=== PATIENT | male | born 1985 | race Caucasian/White ===

== ENCOUNTER 2017-01-20 00:09 | Emergency (ER) | payer OTHER ==
[2017-01-20 00:20] VITALS: BP 147/100; PULSE 103; RESP 18; TEMP 98.4; O2SAT 96
--- NOTE | 2017-01-20 00:22 | PD ---
HPI Chief Complaint: psychiatric evaluation Time Seen by Provider: 00:20 Travel History International Travel<30 days: No Contact w/Intl Traveler<30days: No History of Present Illness HPI Patient comes in with police escort under Sánchez act for allegedly holding a gun to his head and sending a photo of this to his mother. Patient states that he had a rough day, got into an argument with his family, and drank 4 beers. Patient denies any homicidal or suicidal ideations. Patient denies any history of self-harm or suicide attempts. Patient denies any medical concerns at this time. Denies any chest pain, shortness breath, fevers, nausea, vomiting, headache, or abdominal pain. PFSH Past Medical History Medical History: Denies Significant Hx Social History Alcohol Use: Yes Tobacco Use: Yes Substance Use: Yes (marijuana) Allergies-Medications (Allergen,Severity, Reaction): Coded Allergies: No Known Allergies (Unverified , 01/20/17) Reported Meds & Prescriptions Reported Meds & Active Scripts Active No Active Prescriptions or Reported Medications Review of Systems Except as stated in HPI: all other systems reviewed are Neg Physical Exam Narrative GENERAL: Well-developed, well nourished, in no acute distress, and non-ill appearing. SKIN: Focused skin assessment warm and dry. HEAD: Atraumatic. Normocephalic. EYES: Pupils equal and round. EOMI. No scleral icterus. No injection or drainage. ENT: No nasal bleeding or discharge. Mucous membranes pink and moist. NECK: Trachea midline. No JVD. Supple. No nuclear rigidity. CARDIOVASCULAR: Regular rate and rhythm. No murmur appreciated. RESPIRATORY: No accessory muscle use. No respiratory distress. Clear to auscultation. Breath sounds equal bilaterally. MUSCULOSKELETAL: No obvious deformities. No clubbing. No cyanosis. No edema. Full range of motion. NEUROLOGICAL: Awake and alert. No obvious cranial nerve deficits. Motor grossly within normal limits. Normal speech. PSYCHIATRIC: Appropriate mood and affect; insight and judgment normal. Data Data Last Documented VS Vital Signs Date Time Temp Pulse Resp B/P Pulse Ox O2 Delivery O2 Flow Rate FiO2 01/20/17 00:22 101 18 01/20/17 00:20 98.4 147/100 96 Orders Complete Blood Count With Diff (01/20/17 00:18) Comprehensive Metabolic Panel (01/20/17 00:18) Psych Screen (01/20/17 00:18) Drug Screen, Random Urine (01/20/17 00:18) Alcohol (Ethanol) (01/20/17 00:18) Salicylates (Aspirin) (01/20/17 00:18) Tylenol (Acetaminophen) (01/20/17 00:18) Labs Laboratory Tests Test 01/20/17 00:25 White Blood Count 19.6 TH/MM3 Red Blood Count 5.35 MIL/MM3 Hemoglobin 17.7 GM/DL Hematocrit 51.8 % Mean Corpuscular Volume 96.8 FL Mean Corpuscular Hemoglobin 33.0 PG Mean Corpuscular Hemoglobin 34.1 % Concent Red Cell Distribution Width 13.8 % Platelet Count 254 TH/MM3 Mean Platelet Volume 8.5 FL Neutrophils (%) (Auto) 81.7 % Lymphocytes (%) (Auto) 12.5 % Monocytes (%) (Auto) 5.2 % Eosinophils (%) (Auto) 0.3 % Basophils (%) (Auto) 0.3 % Neutrophils # (Auto) 16.0 TH/MM3 Lymphocytes # (Auto) 2.5 TH/MM3 Monocytes # (Auto) 1.0 TH/MM3 Eosinophils # (Auto) 0.1 TH/MM3 Basophils # (Auto) 0.1 TH/MM3 CBC Comment DIFF FINAL Differential Comment Sodium Level 141 MEQ/L Potassium Level 3.7 MEQ/L Chloride Level 106 MEQ/L Carbon Dioxide Level 22.6 MEQ/L Anion Gap 12 MEQ/L Blood Urea Nitrogen 7 MG/DL Creatinine 0.87 MG/DL Estimat Glomerular Filtration 104 ML/MIN Rate Random Glucose 81 MG/DL Calcium Level 9.0 MG/DL Total Bilirubin 0.6 MG/DL Aspartate Amino Transf 17 U/L (AST/SGOT) Alanine Aminotransferase 18 U/L (ALT/SGPT) Alkaline Phosphatase 73 U/L Total Protein 8.4 GM/DL Albumin 4.6 GM/DL Salicylates Level 4.3 MG/DL Urine Opiates Screen NEG Acetaminophen Level LESS THAN 2.0 MCG/ML Urine Barbiturates Screen NEG Urine Amphetamines Screen NEG Urine Benzodiazepines Screen NEG Urine Cocaine Screen NEG Urine Cannabinoids Screen POS Ethyl Alcohol Level 80 MG/DL MDM Medical Decision Making Medical Screen Exam Complete: Yes Emergency Medical Condition: Yes Differential Diagnosis Homicidal, suicidal, electrolyte abnormality, alcohol intoxication, other Narrative Course Patient was seen and examined. Labs were obtained and reviewed. I suspect the leukocytosis is stress-induced. Patient medically cleared for further treatment and evaluation by psych. Final disposition per psych. Diagnosis Primary Impression: Medical clearance for psychiatric admission Scripts No Active Prescriptions or Reported Meds Condition: Jerad Majano Jan 20, 2017 00:22
[2017-01-20 00:52] LABS: BASOPHIL # 0.1 TH/MM3 (0-0.2); BASOPHIL % 0.3 % (0.0-2.0); EOSINOPHIL # 0.1 TH/MM3 (0-0.4); EOSINOPHIL % 0.3 % (0.0-4.0); HEMATOCRIT 51.8 % (39.0-51.0); HEMO FLAGS DIFF FINAL; LYMPH % 12.5 % (9.0-44.0); LYMPHOCYTE # 2.5 TH/MM3 (1.0-4.8); MEAN CELL VOLUME 96.8 FL (80.0-100.0); MEAN CORPUSCULAR HGB CONC 34.1 % (32.0-36.0); MONO % 5.2 % (0.0-8.0); NEUT % 81.7 % (16.0-70.0); PLATELET COUNT 254 TH/MM3 (150-450); RED BLOOD COUNT 5.35 MIL/MM3 (4.50-5.90); RED CELL DISTRIBUTION WIDTH 13.8 % (11.6-17.2); WHITE BLOOD COUNT 19.6 TH/MM3 (4.0-11.0)
[2017-01-20 00:53] LABS: AMPHETAMINE, URINE NEG (NEG); BARBITURATES, URINE NEG (NEG); COCAINE, URINE NEG (NEG)
[2017-01-20 00:57] LABS: ALT (GPT) 18 U/L (12-78); ANION GAP 12 MEQ/L (5-15); AST (GOT) 17 U/L (15-37); BICARBONATE 22.6 MEQ/L (21.0-32.0); BLOOD UREA NITROGEN 7 MG/DL (7-18); CHLORIDE 106 MEQ/L (98-107); GLOMERULAR FILTRATION RATE 104 ML/MIN (>89); POTASSIUM 3.7 MEQ/L (3.5-5.1); SODIUM (NA) 141 MEQ/L (136-145)
[2017-01-20 00:58] LABS: ALKALINE PHOSPHATASE 73 U/L (45-117); TOTAL BILIRUBIN ADULT 0.6 MG/DL (0.2-1.0)
[2017-01-20 00:59] LABS: ACETAMINOPHEN LESS THAN 2.0 MCG/ML (10.0-30.0)
[2017-01-20 08:03] VITALS: BP 134/69; PULSE 55; RESP 14; O2SAT 100
--- NOTE | 2017-01-20 10:30 | PD.PSY.CON ---
Provisional Diagnosis Admission Date Half Way I. Alcohol induced mood disorder, alcohol and cannabis use disorder Half Way II. Deferred Half Way III. No significant medical history History of Present Illness Service Psychiatry Consult Requested By Primary Care Physician Unknown HPI The patient is a 31-year-old [place] man, single, employed, domiciled in [place], no psychiatric history, no previous suicidal attempts, no previous psychiatric admissions, no significant medical history, who comes in with police escort under S[place]chez act for allegedly holding a gun to his head and sending a photo of this to his mother. On psychiatric evaluation today patient is calm, cooperative and pleasant, he is clinically sober. Patient reports good mood, he says that he feels shamed and regrets his actions yesterday, he says that he was stressed and drunk. Patient states that he had a rough day, got into an argument with his family, and drank about 4 beers. He says that he also has been facing problem with his girlfriend. But he denies hopelessness, he denies helplessness, he denies worthlessness, he denies anhedonia, anxiety. Patient denies any homicidal or suicidal ideations. Patient is future oriented, he says that he has to go to his job today, has multiple identifiable protective factors for suicidality. He reports almost daily use of alcohol, denies previous withdrawal symptoms, denies detox/ rehabilitation. He also reports almost daily use of cannabis. Mother, Corin Castro, , use as a collateral information, reports that yesterday she became very scared when he sent her a picture of pain with a gun in his head. She was so scared that she decided to Sánchez act him. What, hours later she became aware that he was using a BB gun and he was drunk and he was most probably just manipulating. She doesn't think that he would benefit of a psychiatric admission. She clarifies that he doesn't have any psychiatric history, he has a good job, but he has been in a lot of stressed after breaking up with his girlfriend. She says that she will calm and pick him up was taking back home with her and will make sure that he is safe. Review of Systems Constitutional: DENIES: Diaphoretic episodes, Fatigue, Fever, Weight gain, Weight loss, Chills, Dizziness, Change in appetite, Night Sweats Endocrine: DENIES: Heat/cold intolerance, Polydipsia, Polyuria, Polyphagia Eyes: DENIES: Blurred vision, Diplopia, Eye inflammation, Eye pain, Vision loss , Photosensitivity, Double Vision Ears, nose, mouth, throat: DENIES: Tinnitus, Hearing loss, Vertigo, Nasal discharge, Oral lesions, Throat pain, Hoarseness, Ear Pain, Running Nose, Epistaxis, Sinus Pain, Toothache, Odynophagia Respiratory: DENIES: Apneas, Cough, Snoring, Wheezing, Hemoptysis, Sputum production, Shortness of breath Gastrointestinal: DENIES: Abdominal pain, Black stools, Bloody stools, Constipation, Diarrhea, Nausea, Vomiting, Difficulty Swallowing, Anorexia Musculoskeletal: DENIES: Joint pain, Muscle aches, Stiffness, Joint Swelling, Back pain, Neck pain Integumentary: DENIES: Abnormal pigmentation, Nail changes, Pruritus, Rash Hematologic/lymphatic: DENIES: Bruising, Lymphadenopathy Immunologic/allergic: DENIES: Eczema, Urticaria Neurologic: DENIES: Abnormal gait, Headache, Localized weakness, Paresthesias, Seizures, Speech Problems, Tremor, Poor Balance Psychiatric: DENIES: Anxiety, Confusion, Mood changes, Depression, Hallucinations, Agitation, Suicidal Ideation, Homicidal Ideation, Delusions Past Family Social History Coded Allergies: No Known Allergies (Unverified , 01/20/17) No Active Prescriptions or Reported Meds Family History Patient denies family psychiatric history Social History Patient was born and raised in [place], he lives alone in [place], he is employed in a [employer] company, his highest level of education is some college Patient's Strengths (min. 2) Family support Physical Exam No withdrawal symptoms, no EPS, no tremors, no previous, no psychomotor agitation or retardation Vital Signs Vital Signs Date Time Temp Pulse Resp B/P Pulse Ox O2 Delivery O2 Flow Rate FiO2 01/20/17 08:03 55 14 134/69 100 Room Air 01/20/17 00:20 98.4 Lab Results Labs Laboratory Tests Test 01/20/17 00:25 White Blood Count 19.6 TH/MM3 Red Blood Count 5.35 MIL/MM3 Hemoglobin 17.7 GM/DL Hematocrit 51.8 % Mean Corpuscular Volume 96.8 FL Mean Corpuscular Hemoglobin 33.0 PG Mean Corpuscular Hemoglobin 34.1 % Concent Red Cell Distribution Width 13.8 % Platelet Count 254 TH/MM3 Mean Platelet Volume 8.5 FL Neutrophils (%) (Auto) 81.7 % Lymphocytes (%) (Auto) 12.5 % Monocytes (%) (Auto) 5.2 % Eosinophils (%) (Auto) 0.3 % Basophils (%) (Auto) 0.3 % Neutrophils # (Auto) 16.0 TH/MM3 Lymphocytes # (Auto) 2.5 TH/MM3 Monocytes # (Auto) 1.0 TH/MM3 Eosinophils # (Auto) 0.1 TH/MM3 Basophils # (Auto) 0.1 TH/MM3 CBC Comment DIFF FINAL Differential Comment Sodium Level 141 MEQ/L Potassium Level 3.7 MEQ/L Chloride Level 106 MEQ/L Carbon Dioxide Level 22.6 MEQ/L Anion Gap 12 MEQ/L Blood Urea Nitrogen 7 MG/DL Creatinine 0.87 MG/DL Estimat Glomerular Filtration 104 ML/MIN Rate Random Glucose 81 MG/DL Calcium Level 9.0 MG/DL Total Bilirubin 0.6 MG/DL Aspartate Amino Transf 17 U/L (AST/SGOT) Alanine Aminotransferase 18 U/L (ALT/SGPT) Alkaline Phosphatase 73 U/L Total Protein 8.4 GM/DL Albumin 4.6 GM/DL Salicylates Level 4.3 MG/DL Urine Opiates Screen NEG Acetaminophen Level LESS THAN 2.0 MCG/ML Urine Barbiturates Screen NEG Urine Amphetamines Screen NEG Urine Benzodiazepines Screen NEG Urine Cocaine Screen NEG Urine Cannabinoids Screen POS Ethyl Alcohol Level 80 MG/DL Mental Status Examination Appearance Age appearing man, good hygiene, [facility], a little bit irritable, but cooperative Speech: Unremarkable Memory: Unremarkable Thought Process: Logical Thought Content: Unremarkable Hallucination Type: None Suicidal Ideation: No Previous Suicide Attempts: No Homicidal Ideation: No Previous Homicide Attempts: No Judgment: WNL Affect: Good Mood: Appropriate Motor Activity: Normal gait Assessment & Plan Problem List: (1) Alcohol abuse with alcohol-induced mood disorder Assessment & Plan: On psychiatric evaluation today patient is calm, cooperative , a little bit irritable. But, he is logical, coherent and relevant. Feature oriented, he denies depressive symptoms, he denies anxiety, kd and psychosis. He denies suicidal and homicidal ideation. He denies visual and auditory hallucinations. No withdrawal symptoms reported or observed. She is now clinically sober. His recent suicidal gesture seems to be related with manipulation to his family most probably aggravated by acute alcohol intoxication and maladaptive coping skills. Patient does not meet criteria for psychiatric admission at this moment. His mother was reached by phone, use as a collateral information, and she agrees with discharge in the patient back to her house, she will come and pick him up, she feels safe with discharge in the patient. Sánchez act will be lifted. ICD Code: F10.14 Assessment & Plan Estimated LOS: Tomás Taylor MD Jan 20, 2017 10:30
== END 2017-01-20 09:01 | disposition home or self-care (01) ==
LOC: NEPD 00:09
DX: Z00.8 Encounter for other general examination (principal); F10.129 Alcohol abuse with intoxication, unspecified; Z72.0 Tobacco use
CPT/HCPCS: 80053; 80307; 85025; 99284